=== PATIENT | female | born 1995 | race Two or more races ===

== ENCOUNTER 2023-05-29 19:43 | Inpatient (IN) | payer OTHER ==
[~2023-05-29] VITALS: Ht 165.1 cm; Wt 82.1 kg
[~2023-05-29 19:43] MED LIST: FAMO20 PO; LUMA42CA PO; SERT-439 PO; TRAZ-252 PO
[2023-05-29] MEDS ORDERED: CLIN60LO6 TP (19:59)
[2023-05-29] MEDS ORDERED: LORA-999 PO (19:59)
[2023-05-29 22:33] LABS: BASOPHILS % (AUTO) 0.4 % (0.0-2.0); EOSINOPHILS % (AUTO) 0 % (1.0-6.0); HEMATOCRIT 35.6 % (36-46); HEMOGLOBIN 11.5 g/dL (12.0-16.0); LYMPHOCYTES # (AUTO) 2.7 K/uL (1.0-4.8); LYMPHOCYTES % (AUTO) 33.4 % (22.0-44.0); MEAN CORPUSCULAR HEMOGLOBIN 27.3 pg (26.0-34.0); MEAN CORPUSCULAR HGB CONC 32.2 G/dL (31.0-37.0); MEAN CORPUSCULAR VOLUME 85 fL (80-100); MONOCYTES # (AUTO) 0.9 K/uL (0.1-1.0); MONOCYTES % (AUTO) 10.7 % (2.0-9.0); NEUTROPHILS # (AUTO) 4.4 K/uL (1.8-7.7); NEUTROPHILS % (AUTO) 55.5 % (40.0-70.0); PLATELET COUNT (AUTO) 378 K/uL (150-450); RED CELL DISTRIBUTION WIDTH 17.7 % (11.5-14.5)
[2023-05-29 22:42] LABS: ANION GAP 19 mmol/L (8-16); CALCIUM, TOTAL 8.8 mg/dL (8.8-10.5); CARBON DIOXIDE 24 mmol/L (22-29); CHLORIDE 100 mmol/L (98-107); CREATININE 0.72 mg/dL (0.60-1.30); GLOMERULAR FILTR. RATE CALC > 60 mL/min (>60); GLUCOSE,RANDOM 93 mg/dL (70-110); POTASSIUM 3.2 mmol/L (3.5-5.1); SODIUM SERUM 143 mmol/L (136-145)
[2023-05-29 22:47] LABS: ALANINE AMINOTRANSFERASE 28 U/L (12-78); ALBUMIN 3.6 g/dL (3.4-5.0); ALKALINE PHOSPHATASE 95 U/L (46-116); ASPARTATE AMINOTRANSFERASE 27 U/L (15-37); BILIRUBIN,TOTAL 0.3 mg/dL (0.1-1.0)
[2023-05-29] MEDS ORDERED: HALOPERIDOL 5 MG TABLET PO PRN (23:30)
[2023-05-30] LABS: COVID AG,FIA SOURCE NASOPHARYNGEAL
[2023-05-30] MEDS: LORazepam 1 MG TABLET PO PRN ×4 (00:52→21:51)
[2023-05-30 03:38] VITALS: BP 123/70; PULSE 76; RESP 18; TEMP 97.6; O2SAT 98
[2023-05-30] MEDS ORDERED: POTASSIUM CHLORIDE 20 MEQ ER TABLET PO ONE (07:30)
[2023-05-30 08:30] VITALS: BP 123/68; PULSE 87; RESP 18; TEMP 97.8; O2SAT 99
[2023-05-30] MEDS ORDERED: CloNIDine HCL 0.1 MG TABLET PO PRN (08:30)
[2023-05-30] MEDS ORDERED: ACETAMINOPHEN 325 MG TABLET PO PRN (08:30)
[2023-05-30] MEDS ORDERED: NICOTINE 14 MG/24 HOUR PATCH TD PRN (08:30)
[2023-05-30] MEDS ORDERED: ALBUTEROL SULFATE HFA 90 MCG/PUFF 8 GM INHALER IH PRN (08:30)
[2023-05-30] MEDS ORDERED: ONDANSETRON HCL 4 MG TABLET PO PRN (08:30)
[2023-05-30] MEDS ORDERED: MAG HYDROX/AL HYDROX/SIMETH ES 30 ML SUSPENSION UDCUP PO PRN (08:30)
[2023-05-30] MEDS ORDERED: PETROLATUM,WHITE 28 GM JELLY TP PRN (08:30)
[2023-05-30] MEDS ORDERED: GuaiFENesin/D-METHORPHAN [SUGAR-FREE] 200-20MG/10 ML SYRUP UDCUP PO PRN (08:30)
[2023-05-30] MEDS ORDERED: LOPERAMIDE HCL 2 MG CAPSULE PO PRN (08:30)
[2023-05-30] MEDS ORDERED: MAGNESIUM HYDROXIDE SUSPENSION 30 ML UDCUP PO PRN (08:30)
[2023-05-30] MEDS ORDERED: DOCUSATE SODIUM 100 MG CAPSULE PO PRN (08:30)
[2023-05-30] MEDS ORDERED: SERTRALINE HCL 50 MG TABLET PO SCH (13:00)
[2023-05-30] MEDS: ESCITALOPRAM OXALATE 20 MG TABLET PO SCH (15:07)
[2023-05-30 20:24] VITALS: BP 139/88; PULSE 98; RESP 18; TEMP 98.1; O2SAT 98
[2023-05-30] MEDS: TraZODone HCL 50 MG TABLET PO SCH (20:29)
[2023-05-30] MEDS: ZOLPIDEM TARTRATE 10 MG TABLET PO PRN (22:34)
[2023-05-31] MEDS: LORazepam 1 MG TABLET PO PRN ×3 (02:21→11:06)
[2023-05-31] MEDS: IBUPROFEN 400 MG TABLET PO PRN (02:22)
[2023-05-31 02:27] VITALS: BP 140/89; PULSE 100; RESP 18; TEMP 97.6; O2SAT 97
[2023-05-31] MEDS: FAMOTIDINE 20 MG TABLET PO PRN (05:58)
[2023-05-31 08:16] LABS: BASOPHILS % (AUTO) 0.3 % (0.0-2.0); EOSINOPHILS % (AUTO) 0 % (1.0-6.0); HEMATOCRIT 37.1 % (36-46); HEMOGLOBIN 12.1 g/dL (12.0-16.0); LYMPHOCYTES # (AUTO) 1.9 K/uL (1.0-4.8); LYMPHOCYTES % (AUTO) 24.1 % (22.0-44.0); MEAN CORPUSCULAR HEMOGLOBIN 27.6 pg (26.0-34.0); MEAN CORPUSCULAR HGB CONC 32.7 G/dL (31.0-37.0); MEAN CORPUSCULAR VOLUME 85 fL (80-100); MONOCYTES # (AUTO) 0.7 K/uL (0.1-1.0); MONOCYTES % (AUTO) 8.8 % (2.0-9.0); NEUTROPHILS # (AUTO) 5.2 K/uL (1.8-7.7); NEUTROPHILS % (AUTO) 66.8 % (40.0-70.0); PLATELET COUNT (AUTO) 387 K/uL (150-450); RED BLOOD CELL COUNT(AUTO) 4.39 MIL/uL (4.00-5.20); RED CELL DISTRIBUTION WIDTH 17.7 % (11.5-14.5)
[2023-05-31 08:30] VITALS: BP 138/74; PULSE 80; RESP 17; TEMP 98; O2SAT 95
[2023-05-31 08:33] LABS: HEMOGLOBIN A1C 5.5 % (3.8-5.6)
[2023-05-31 08:44] LABS: ALANINE AMINOTRANSFERASE 31 U/L (12-78); ALBUMIN 3.9 g/dL (3.4-5.0); ALKALINE PHOSPHATASE 97 U/L (46-116); ANION GAP 18 mmol/L (8-16); ASPARTATE AMINOTRANSFERASE 32 U/L (15-37); BILIRUBIN,TOTAL 0.5 mg/dL (0.1-1.0); CARBON DIOXIDE 26 mmol/L (22-29); CHLORIDE 98 mmol/L (98-107); CHOL/HDL RATIO 2.8 (3.9-5.7); CHOLESTEROL 173 mg/dL (131-200); CREATININE 0.64 mg/dL (0.60-1.30); GLOMERULAR FILTR. RATE CALC > 60 mL/min (>60); GLUCOSE,RANDOM 97 mg/dL (70-110); HDL CHOLESTEROL 62 mg/dL (40-60); LDL CHOL (CALC.) 100 mg/dL (0-130); POTASSIUM 3.4 mmol/L (3.5-5.1); SODIUM SERUM 142 mmol/L (136-145); THYROID STIMULATING HORMONE 2.65 uIU/mL (0.36-3.74); TOTAL PROTEIN, SERUM 7.6 g/dL (6.4-8.2); TRIGLYCERIDES 56 mg/dL (15-150)
[2023-05-31] MEDS: ESCITALOPRAM OXALATE 20 MG TABLET PO SCH (08:45)
[2023-05-31] MEDS ORDERED: POTASSIUM CHLORIDE 20 MEQ ER TABLET PO ONE (13:30)
[2023-05-31] MEDS: LORazepam 2 MG TABLET PO PRN ×2 (15:54→23:20)
[2023-05-31] MEDS: TraZODone HCL 50 MG TABLET PO SCH (20:04)
[2023-05-31] MEDS: LUMATEPERONE 42 MG PO SCH (20:04)
[2023-05-31 20:17] VITALS: BP 117/74; PULSE 77; RESP 18; TEMP 97.9; O2SAT 97
[2023-05-31] MEDS ORDERED: *PATIENT'S OWN MED [ENTER DRUG, DOSE, FREQUENCY IN COMMENTS] CLINICAL ONE (21:00)
[2023-05-31] MEDS: ZOLPIDEM TARTRATE 10 MG TABLET PO PRN (22:18)
[2023-06-01] MEDS: LORazepam 2 MG TABLET PO PRN ×3 (03:30→22:01)
[2023-06-01] MEDS: ESCITALOPRAM OXALATE 20 MG TABLET PO SCH (08:03)
[2023-06-01 08:15] VITALS: BP 131/86; PULSE 94; RESP 18; TEMP 97.5; O2SAT 97
[2023-06-01] MEDS: TraZODone HCL 50 MG TABLET PO SCH (20:29)
[2023-06-01] MEDS: LUMATEPERONE 42 MG PO SCH (20:30)
[2023-06-01 20:52] VITALS: BP 129/74; PULSE 80; RESP 18; TEMP 97.6; O2SAT 96
[2023-06-01] MEDS ORDERED: *PATIENT'S OWN MED [ENTER DRUG, DOSE, FREQUENCY IN COMMENTS] CLINICAL SCH (21:00)
[2023-06-02] MEDS: FAMOTIDINE 20 MG TABLET PO PRN (06:25)
[2023-06-02 08:13] VITALS: BP 116/67; PULSE 91; RESP 18; TEMP 97.5; O2SAT 97
[2023-06-02] MEDS: ESCITALOPRAM OXALATE 20 MG TABLET PO SCH (08:19)
[2023-06-02] MEDS: LORazepam 2 MG TABLET PO PRN ×2 (16:45→23:57)
[2023-06-02 20:15] VITALS: BP 132/81; PULSE 87; RESP 18; O2SAT 99
[2023-06-02] MEDS: TraZODone HCL 50 MG TABLET PO SCH (20:45)
[2023-06-02] MEDS: LUMATEPERONE 42 MG PO SCH (20:45)
[2023-06-03] MEDS: ESCITALOPRAM OXALATE 20 MG TABLET PO SCH (08:16)
[2023-06-03 08:19] LABS: AMPHET/METH SCREEN,URINE NEGATIVE (NEGATIVE); BARBITURATE SCREEN, URINE NEGATIVE (NEGATIVE); BENZODIAZEPINES SCREEN,URINE NEGATIVE (NEGATIVE); CANNABINOID SCREEN,URINE POSITIVE (NEGATIVE); COCAINE SCREEN,URINE NEGATIVE (NEGATIVE); METHADONE SCREEN, URINE NEGATIVE (NEGATIVE); OPIATE SCREEN,URINE NEGATIVE (NEGATIVE); PHENCYCLIDINE SCREEN,URINE NEGATIVE (NEGATIVE)
[2023-06-03 08:29] LABS: APPEARANCE,URINE CLEAR (CLEAR); BILIRUBIN,URINE NEGATIVE (NEGATIVE); GLUCOSE, URINE (UA) NEGATIVE (NEGATIVE); KETONES,URINE NEGATIVE (NEGATIVE); LEUKOCYTE ESTERASE ,URINE TRACE (NEGATIVE); NITRATE,URINE NEGATIVE (NEGATIVE); OCCULT BLOOD,URINE NEGATIVE (NEGATIVE); PH,URINE 6.5 (5.0-8.0); PROTEIN,URINE NEGATIVE (NEGATIVE); SPECIFIC GRAVITIY, URINE 1.002 (1.003-1.030); UROBILINOGEN,URINE <=1.0 mg/dL (<=1.0)
[2023-06-03 08:48] LABS: BACTERIA,URINE None Seen /HPF (None Seen); RBC,URINE None Seen /HPF (0-2); WBC,URINE 0-2 /HPF (0-5)
[2023-06-03 09:09] VITALS: BP 119/75; PULSE 99; RESP 17; TEMP 97.2; O2SAT 97
[2023-06-03] MEDS: LUMATEPERONE 42 MG PO SCH (20:30)
[2023-06-03] MEDS: TraZODone HCL 50 MG TABLET PO SCH (20:30)
[2023-06-03 20:40] VITALS: BP 147/97; PULSE 99; RESP 18; TEMP 97.8; O2SAT 95
[2023-06-03] MEDS: FAMOTIDINE 20 MG TABLET PO PRN (20:40)
[2023-06-03] MEDS: LORazepam 2 MG TABLET PO PRN (21:55)
[2023-06-04] MEDS: LORazepam 2 MG TABLET PO PRN (03:12)
[2023-06-04] MEDS: ESCITALOPRAM OXALATE 20 MG TABLET PO SCH (08:16)
[2023-06-04 08:20] VITALS: BP 134/86; PULSE 94; RESP 18; TEMP 97.3; O2SAT 99
[2023-06-04] MEDS: FAMOTIDINE 20 MG TABLET PO PRN (19:30)
[2023-06-04] MEDS: TraZODone HCL 50 MG TABLET PO SCH (20:17)
[2023-06-04] MEDS: LUMATEPERONE 42 MG PO SCH (20:17)
[2023-06-04 20:43] VITALS: BP 118/62; PULSE 111; RESP 18; TEMP 97.5; O2SAT 97
[2023-06-05 03:21] VITALS: BP 121/85; PULSE 100; RESP 18
[2023-06-05] MEDS: IBUPROFEN 400 MG TABLET PO PRN (03:27)
[2023-06-05 04:21] VITALS: RESP 18
[2023-06-05] MEDS: ESCITALOPRAM OXALATE 20 MG TABLET PO SCH (08:18)
[2023-06-05 08:57] VITALS: BP 132/89; PULSE 86; RESP 18; TEMP 97.8; O2SAT 98
[2023-06-05 09:47] VITALS: RESP 18
[2023-06-05 10:47] VITALS: RESP 18
[2023-06-05] MEDS ORDERED: ESCI20TA87 PO ×2 (14:06→17:31)
== END 2023-06-05 15:15 | disposition home or self-care (01) | DRG 885 ==
LOC: EMS 19:46 → B2S 05-30
PROVIDERS: ADMIT Psychiatry & Neurology Psychiatry; ATTEND Psychiatry & Neurology Psychiatry
DX: F25.0 Schizoaffective disorder, bipolar type (principal); R45.851 Suicidal ideations; K21.9 Gastro-esophageal reflux disease without esophagitis; F25.1 Schizoaffective disorder, depressive type; Z20.822 Contact with and (suspected) exposure to COVID-19; E87.6 Hypokalemia; G47.00 Insomnia, unspecified; D64.9 Anemia, unspecified; Z79.899 Other long term (current) drug therapy
CPT/HCPCS: 80053; 80061; 80307; 81001; 83036; 84132; 84443; 84703; 85025; 87081; 99285; G0480; J3535; Q0162; Q9967